=== PATIENT | female | born 1960 | race Caucasian/White ===

== ENCOUNTER 2019-01-17 14:44 | Emergency (ER) | payer BC ==
[2019-01-17] MEDS ORDERED: hydroCHLOROthiazide 25 MG TAB ONE (16:43)
[2019-01-17 16:51] LABS: Absolute Lymphocytes (CBC) 1.4 K/uL (0.7-4.9); Absolute Monocytes 0.3 K/uL (0.1-1.3); Absolute Neutrophil 2.9 K/uL (1.8-8.0); Basophils % 0.8 % (0-1.3); Eosinophils % 2.2 % (0-4.4); Hematocrit 39.7 % (36.0-45.0); Lymphocytes % 29.6 % (15.3-44.8); MPV 8.1 fL (7.6-11.3); Monocytes % 6.6 % (3.3-12.3); RBC Red Blood Cell Count 4.42 M/uL (3.86-4.86)
[2019-01-17 16:57] LABS: Protime INR 0.98
[2019-01-17 17:12] LABS: ALT/SGPT 20 U/L (12-78); AST/SGOT 15 U/L (15-37); Alkaline Phosphatase 65 U/L (45-117); BUN Blood Urea Nitrogen 20 mg/dL (7-18); Bicarbonate 23 mmol/L (21-32); Bilirubin Direct 0.1 mg/dL (0-0.2); Bilirubin Total 0.4 mg/dL (0.2-1.0); Glucose Level 89 mg/dL (74-106); Magnesium 2.3 mg/dL (1.8-2.4); NT PRO-BNP 190 pg/mL (<125); Potassium 3.5 mmol/L (3.5-5.1); Protein, Total 7.2 g/dL (6.4-8.2); Sodium Level 143 mmol/L (136-145); Troponin (Emerg Dept Use Only) < 0.02 ng/mL (0.0-0.045)
--- NOTE | 2019-01-17 17:41 | ER ---
Nurse's Notes [facility] Name: Carmelita Cast Age: 58 yrs Sex: Female : 1960 Arrival Date: 01/17/2019 Time: 14:44 Bed 16 Private MD: Diagnosis: Essential (primary) hypertension Presentation: 01/17 15:15 Presenting complaint: Patient states: at Dr. Perez's office for regular check up, iw was told her BP was brigette high, was told to come to ER for evaluation, pt denies hx of htn, not on meds, pt denies headache, blurry vision, dizziness. Transition of care: patient was not received from another setting of care. Onset of symptoms was January 17, 2019. Risk Assessment: Do you want to hurt yourself or someone else? Patient reports no desire to harm self or others. Initial Sepsis Screen: Does the patient meet any 2 criteria? No. Patient's initial sepsis screen is negative. Does the patient have a suspected source of infection? No. Patient's initial sepsis screen is negative. Care prior to arrival: None. 15:15 Method Of Arrival: Ambulatory iw 15:15 Acuity: JACQUELIN 3 iw Historical: - Allergies: 15:20 No Known Allergies; iw - Home Meds: 15:20 multivitamin oral cap daily [Active]; iw - PMHx: 15:20 None; iw - PSHx: 15:20 partial hysterectomy; Kidney stents; breast augmentation; iw - Immunization history:: Adult Immunizations not up to date. - Social history:: Smoking status: Patient/guardian denies using tobacco. - Ebola Screening: : Patient negative for fever greater than or equal to 101.5 degrees Fahrenheit, and additional compatible Ebola Virus Disease symptoms Patient denies exposure to infectious person Patient denies travel to an Ebola-affected area in the 21 days before illness onset No symptoms or risks identified at this time. Screenin:00 Abuse screen: Denies threats or abuse. Nutritional screening: No deficits noted. em Tuberculosis screening: No symptoms or risk factors identified. Fall Risk None identified. Assessment: 16:00 General: Appears in no apparent distress. comfortable, Behavior is calm, cooperative, em Denies fever. Pain: Denies pain. Neuro: Level of Consciousness is awake, alert, obeys commands, Oriented to person, place, time, situation, Speech is normal, Facial symmetry appears normal, Denies weakness blurred vision dizziness, numbness headache. Cardiovascular: Denies chest pain, palpitations, shortness of breath, Heart tones S1 S2 present Capillary refill < 3 seconds Patient's skin is warm and dry. Respiratory: Airway is patent Respiratory effort is even, unlabored, Respiratory pattern is regular, symmetrical, Breath sounds are clear bilaterally. GI: Abdomen is flat. Derm: Skin is intact, is healthy with good turgor, Skin is pink, warm \T\ dry. Musculoskeletal: Capillary refill < 3 seconds, Range of motion: intact in all extremities. 17:00 Reassessment: Patient appears in no apparent distress at this time. Patient and/or em family updated on plan of care and expected duration. Pain level reassessed. Patient is alert, oriented x 3, equal unlabored respirations, skin warm/dry/pink. Patient denies pain at this time. Patient states feeling better. 18:00 Reassessment: Patient appears in no apparent distress at this time. Patient and/or em family updated on plan of care and expected duration. Pain level reassessed. Patient is alert, oriented x 3, equal unlabored respirations, skin warm/dry/pink. Vital Signs: 15:20 BP 198 / 96; Pulse 79; Resp 16; Temp 99.1; Pulse Ox 98% on R/A; Weight 65.77 kg; Height iw 5 ft. 5 in. (165.10 cm); Pain 0/10; 16:15 BP 167 / 96; Pulse 61; Resp 18; Pulse Ox 99% on R/A; Pain 0/10; em 16:40 BP 142 / 80; Pulse 57; Resp 18; Pulse Ox 97% on R/A; em 17:00 BP 151 / 81; Pulse 55; Resp 16; Pulse Ox 99% on R/A; Pain 0/10; em 17:40 BP 167 / 86; Pulse 61; Resp 18; Pulse Ox 97% on R/A; em 15:20 Body Mass Index 24.13 (65.77 kg, 165.10 cm) iw ED Course: 14:44 Patient arrived in ED. as 15:18 Triage completed. iw 15:21 Arm band placed on. iw 15:39 Camille Hernandez FNP-C is PHCP. kb 15:39 Raad Cross MD is Attending Physician. kb 15:53 Lewis Easley LVN is Primary Nurse. em 15:54 EKG done, by technical staff assistant. reviewed by Camille TALBOT. 3 16:20 Patient has correct armband on for positive identification. Bed in low position. Call em light in reach. Side rails up X2. Pulse ox on. NIBP on. 16:20 Initial lab(s) drawn, by me, sent to lab. Inserted saline lock: 20 gauge in left em antecubital area, using aseptic technique. Blood collected. 18:14 No provider procedures requiring assistance completed. IV discontinued, intact, em bleeding controlled, No redness/swelling at site. Pressure dressing applied. Administered Medications: 16:39 Drug: Hydrochlorothiazide 12.5 mg Route: PO; em 18:17 Follow up: Response: No adverse reaction em 16:53 Not Given (Other Intervention Used): Hydrochlorothiazide 25 mg PO once em Outcome: 17:40 Discharge ordered by MD. kb 18:16 Discharged to home ambulatory. em 18:16 Condition: good 18:16 Discharge instructions given to patient, Instructed on discharge instructions, follow up and referral plans. medication usage, Demonstrated understanding of instructions, follow-up care, medications, Prescriptions given X 1. 18:18 Patient left the ED. em Signatures: Camille Hernandez FNP-C FNP-Ckb Lewis Easley LVN LVN em Chelsea Trevino Irene, RN Mandi Gustafson 3
--- NOTE | 2019-01-17 17:41 | EDPHYS ---
Physician Documentation [facility] Name: Carmelita Cast Age: 58 yrs Sex: Female : 1960 Arrival Date: 01/17/2019 Time: 14:44 Bed 16 Private MD: ED Physician Raad Cross HPI: 01/17 17:33 This 58 yrs old Female presents to ER via Ambulatory with complaints of High kb Blood Pressure. 17:33 The patient has elevated blood pressure and discovered this at a physician's office, kb and sent to the emergency department for evaluation. Onset: The symptoms/episode began/occurred today. Associated signs and symptoms: The patient has no apparent associated signs or symptoms. Severity of symptoms: At its worst the blood pressure was 200 mm Hg. The patient has not experienced similar symptoms in the past. The patient has been recently seen by a physician: with different complaint(s). 17:37 Pt was at [facility] for annual exam and blood pressure was elevated (185/100 and 200/110). kb Was sent to ER for eval. Pt reports she has never been diagnosed with HTN, she does have a family history of it. Went to dentist last week and the reading there was 175/100, but they thought it was a bad reading due to new equipment. Pt does not have a PCP currently, but was given a few to call to follow up with. Dr Beaulieu called ER prior to pt's arrival and requests a work-up be done and pt be given BP medication until she can follow up with PCP. . Historical: - Allergies: 15:20 No Known Allergies; iw - Home Meds: 15:20 multivitamin oral cap daily [Active]; iw - PMHx: 15:20 None; iw - PSHx: 15:20 partial hysterectomy; Kidney stents; breast augmentation; iw - Immunization history:: Adult Immunizations not up to date. - Social history:: Smoking status: Patient/guardian denies using tobacco. - Ebola Screening: : Patient negative for fever greater than or equal to 101.5 degrees Fahrenheit, and additional compatible Ebola Virus Disease symptoms Patient denies exposure to infectious person Patient denies travel to an Ebola-affected area in the 21 days before illness onset No symptoms or risks identified at this time. ROS: 17:33 Constitutional: Negative for fever, chills, and weight loss, ENT: Negative for injury, kb pain, and discharge, Neck: Negative for injury, pain, and swelling, Cardiovascular: Negative for chest pain, palpitations, and edema, Respiratory: Negative for shortness of breath, cough, wheezing, and pleuritic chest pain, Abdomen/GI: Negative for abdominal pain, nausea, vomiting, diarrhea, and constipation, Back: Negative for injury and pain, : Negative for injury, bleeding, discharge, and swelling, MS/Extremity: Negative for injury and deformity, Skin: Negative for injury, rash, and discoloration, Neuro: Negative for headache, weakness, numbness, tingling, and seizure. Exam: 17:33 Constitutional: This is a well developed, well nourished patient who is awake, alert, kb and in no acute distress. Head/Face: Normocephalic, atraumatic. Eyes: Pupils equal round and reactive to light, extra-ocular motions intact. Lids and lashes normal. Conjunctiva and sclera are non-icteric and not injected. Cornea within normal limits. Periorbital areas with no swelling, redness, or edema. ENT: Nares patent. No nasal discharge, no septal abnormalities noted. Tympanic membranes are normal and external auditory canals are clear. Oropharynx with no redness, swelling, or masses, exudates, or evidence of obstruction, uvula midline. Mucous membranes moist. Neck: Trachea midline, no thyromegaly or masses palpated, and no cervical lymphadenopathy. Supple, full range of motion without nuchal rigidity, or vertebral point tenderness. No Meningismus. Chest/axilla: Normal chest wall appearance and motion. Nontender with no deformity. No lesions are appreciated. Cardiovascular: Regular rate and rhythm with a normal S1 and S2. No gallops, murmurs, or rubs. Normal PMI, no JVD. No pulse deficits. Respiratory: Lungs have equal breath sounds bilaterally, clear to auscultation and percussion. No rales, rhonchi or wheezes noted. No increased work of breathing, no retractions or nasal flaring. Abdomen/GI: Soft, non-tender, with normal bowel sounds. No distension or tympany. No guarding or rebound. No evidence of tenderness throughout. Skin: Warm, dry with normal turgor. Normal color with no rashes, no lesions, and no evidence of cellulitis. MS/ Extremity: Pulses equal, no cyanosis. Neurovascular intact. Full, normal range of motion. Neuro: Awake and alert, GCS 15, oriented to person, place, time, and situation. Cranial nerves II-XII grossly intact. Motor strength 5/5 in all extremities. Sensory grossly intact. Cerebellar exam normal. Normal gait. Vital Signs: 15:20 BP 198 / 96; Pulse 79; Resp 16; Temp 99.1; Pulse Ox 98% on R/A; Weight 65.77 kg; Height iw 5 ft. 5 in. (165.10 cm); Pain 0/10; 16:15 BP 167 / 96; Pulse 61; Resp 18; Pulse Ox 99% on R/A; Pain 0/10; em 16:40 BP 142 / 80; Pulse 57; Resp 18; Pulse Ox 97% on R/A; em 17:00 BP 151 / 81; Pulse 55; Resp 16; Pulse Ox 99% on R/A; Pain 0/10; em 17:40 BP 167 / 86; Pulse 61; Resp 18; Pulse Ox 97% on R/A; em 15:20 Body Mass Index 24.13 (65.77 kg, 165.10 cm) iw MDM: 15:39 Patient medically screened. kb 17:30 Data reviewed: vital signs, nurses notes. Data interpreted: Pulse oximetry: on room air kb is 99 %. Interpretation: normal. Counseling: I had a detailed discussion with the patient and/or guardian regarding: the historical points, exam findings, and any diagnostic results supporting the discharge/admit diagnosis, lab results, the need for outpatient follow up, a family practitioner, to return to the emergency department if symptoms worsen or persist or if there are any questions or concerns that arise at home. ED course: Dr Beaulieu wanted pt put on a blood pressure medication today until she can follow up with a PCP. Pt educated to take blood pressure at least twice a day and keep a log for her PCP. Educated to decrease sodium intake. Verbal understanding received. . 01/17 15:40 Order name: Basic Metabolic Panel; Complete Time: 17:13 kb 01/17 15:40 Order name: CBC with Diff; Complete Time: 16:58 kb 01/17 15:40 Order name: LFT's; Complete Time: 17:13 kb 01/17 15:40 Order name: Magnesium; Complete Time: 17:13 kb 01/17 15:40 Order name: NT PRO-BNP; Complete Time: 17:13 kb 01/17 15:40 Order name: PT-INR; Complete Time: 17:03 kb 01/17 15:40 Order name: Troponin (emerg Dept Use Only); Complete Time: 17:13 kb 01/17 15:40 Order name: EKG; Complete Time: 15:41 kb 01/17 15:40 Order name: EKG - Nurse/Tech; Complete Time: 16:54 kb 01/17 15:40 Order name: IV Saline Lock; Complete Time: 16:54 kb 01/17 15:40 Order name: Labs collected and sent; Complete Time: 16:54 kb 01/17 15:40 Order name: O2 Per Protocol; Complete Time: 16:54 kb 01/17 15:40 Order name: O2 Sat Monitoring; Complete Time: 16:54 kb Administered Medications: 16:39 Drug: Hydrochlorothiazide 12.5 mg Route: PO; em 18:17 Follow up: Response: No adverse reaction em 16:53 Not Given (Other Intervention Used): Hydrochlorothiazide 25 mg PO once em Disposition: 01/17/19 17:40 Discharged to Home. Impression: Essential (primary) hypertension. - Condition is Stable. - Discharge Instructions: Hypertension, [id number], DASH Eating Plan, Managing Your Hypertension. - Prescriptions for Hydrochlorothiazide 12.5 mg Oral Tablet - take 1 tablet by ORAL route once daily; 30 tablet. - Medication Reconciliation Form, Thank You Letter, Antibiotic Education, Prescription Opioid Use form. - Follow up: Emergency Department; When: As needed; Reason: Worsening of condition. Follow up: Private Physician; When: 2 - 3 days; Reason: Recheck today's complaints, Continuance of care, Re-evaluation by your physician. Addendum: 01/20/2019 10:07 Co-signature as Attending Physician, Raad Cross MD I agree with the assessment and c noyola plan of care. Signatures: Dispatcher [employer] Camille Sparks, GUIDE DOG TRAINER-C LUCILA-Raad Cedeño MD MD cha Munoz, Edgar, LAB TESTER LAB TESTER em Judie Mohan RN RN iw Corrections: (The following items were deleted from the chart) 01/17 18:18 17:40 01/17/2019 17:40 Discharged to Home. Impression: Essential (primary) em hypertension. Condition is Stable. Forms are Medication Reconciliation Form, Thank You Letter, Antibiotic Education, Prescription Opioid Use. Follow up: Emergency Department; When: As needed; Reason: Worsening of condition. Follow up: Private Physician; When: 2 - 3 days; Reason: Recheck today's complaints, Continuance of care, Re-evaluation by your physician. kb
--- NOTE | 2019-01-17 21:15 | EKG ---
Test Date: 2019-01-17 Test Time: 15:48:29 Ribbon Hand: JACKI MEASUREMENT RESULTS: Intervals: Rate: 68 SD: 142 QRSD: 94 QT: 388 QTc: 412 [place]: P: 73 SD: 142 QRS: 81 T: 76 INTERPRETIVE STATEMENTS: Normal sinus rhythm Normal ECG No previous ECG available for comparison Electronically Signed On 01-17-19 21:15:00 CDT by Ariel Allen
== END 2019-01-17 18:18 | disposition home or self-care (01) ==
LOC: ER 14:44
DX: I10 Essential (primary) hypertension (principal)
CPT/HCPCS: 36415; 80048; 80076; 83735; 83880; 84484; 85025; 85610; 93005; 99284